=== PATIENT | female | born 1965 | race Caucasian/White ===

== ENCOUNTER 2023-04-03 05:55 | Emergency (ER) | payer OTHER ==
--- NOTE | 2023-04-03 06:32 | ED Physician Documentation ---
PD HPI FOCAL NEURO - Stated complaint Stated Complaint: HAND TINGLING - Chief complaint Chief Complaint: Ext Problem - History obtained from History obtained from: Patient - History of Present Illness Timing - onset: Enter time (514), Today Timing - duration: Hours Timing - details: Abrupt onset, Still present, Other (imnproved) Time of symptom onset unknown: Time of onset unknown Severity of deficit: Mild Weakness: No: Face, Arm, Hand, Leg, Foot, Right, Left Numbness: Hand, Left. No: Face, Arm, Leg, Foot, Right Associated symptoms: No: Headache, Nausea / vomiting, Seizure, Syncope, Fall, Head injury, Chest pain, Neck pain, Back pain Contributing factors: negative: Anticoagulated Baseline status: positive: A&OX3, ambulatory, indep Similar symptoms before: Has not had sx before Recently seen: Not recently seen - Additional information Additional information: Previously well Sandra Michael with a history of type 2 diabetes presents to the emergency department this morning with pain to her left arm that she awoke with at 515. She had pain from her shoulder down to her hand and this has now resolved to numbness in her hand. Review of Systems Constitutional: denies: Fever Throat: denies: Sore throat Cardiac: denies: Chest pain / pressure Respiratory: denies: Cough GI: denies: Nausea, Vomiting, Constipation, Diarrhea : denies: Dysuria, Frequency Skin: denies: Rash Musculoskeletal: denies: Neck pain, Back pain, Extremity pain Neurologic: reports: Numbness (to the left hand). denies: Generalized weakness, Focal weakness PD PAST MEDICAL HISTORY - Past Medical History Past Medical History: Yes Endocrine/Autoimmune: Type 2 diabetes Psych: Depression - Present Medications Home Medications: Ambulatory Orders Medication Instructions Recorded Confirmed Citalopram Hydrobromide 40 mg PO DAILY 04/03/23 04/03/23 [Citalopram HBr] Empagliflozin [Jardiance] 25 mg PO DAILY 04/03/23 04/03/23 Semaglutide [Ozempic] 2 mg SQ 04/03/23 04/03/23 buPROPion [Wellbutrin Xl] 150 mg PO DAILY 04/03/23 04/03/23 metFORMIN [Glucophage] 500 mg PO BID 04/03/23 04/03/23 - Allergies Allergies/Adverse Reactions: Allergies Allergy/AdvReac Type Severity Reaction Status Date / Time papaya Allergy Edema Verified 04/03/23 06:15 - Social History Does the pt smoke?: No Smoking Status: Never smoker PD ED PE NORMAL - Vitals Vital signs reviewed: Yes (normal ) - General General: Alert and oriented X 3, No acute distress, Well developed/nourished - HEENT HEENT: Atraumatic, PERRL, EOMI - Neck Neck: Supple, no meningeal sign, No bony TTP, No adenopathy - Cardiac Cardiac: RRR, No murmur - Respiratory Respiratory: No respiratory distress, Clear bilaterally - Abdomen Abdomen: Normal bowel sounds, Soft, Non tender, Non distended, No organomegaly - Back Back: No CVA TTP, No spinal TTP - Derm Derm: Normal color, Warm and dry, No rash - Extremities Extremities: No deformity, No edema - Neuro Neuro: Alert and oriented X 3, domestic technician 2-12 intact, No motor deficit, Normal speech, Other (There is subjective numbness to the left hand palmar and dorsal. ) Eye Opening: Spontaneous Motor: Obeys Commands Verbal: Oriented GCS Score: 15 - Psych Psych: Normal mood, Normal affect NIHSS - Time Time: 06:20 - Level of Consciousness Level of consciousness: (0) Alert, Keenly responsive LOC Questions: (0) Answers both Q's correct LOC Commands: (0) Performs both correctly - Gaze Best Gaze: (0) Normal - Visual Visual: (0) No loss - Facial Palsy Facial Palsy: (0) Normal, symmetrical movement - Motor Arms (both separate) Motor Arm (right): (0) No drift Motor Arm (left): (0) No drift - Motor Legs (both separate) Motor Leg (right): (0) No drift Motor Leg (left): (0) No drift - Limb Ataxia Limb Ataxia: (0) Absent - Sensory Sensory: (1) [id number] loss - Best Language Best Language: (0) No aphasia - Dysarthria Dysarthria: (0) Normal - Extinction and Inattention (formally neg Extinction and inattention: (0) No abnormality - Total Score/Results Total Score/Result: 1 Results - Vitals Vitals: Vital Signs - 24 hr 04/03/23 04/03/23 04/03/23 06:00 06:25 06:30 Temperature 36.1 C L Heart Rate 68 66 71 Respiratory 17 17 19 Rate Blood Pressure 94/72 112/62 O2 Saturation 100 97 97 04/03/23 07:44 Temperature 36.6 C Heart Rate 66 Respiratory 16 Rate Blood Pressure 105/57 L O2 Saturation 98 Oxygen O2 Source Room air - EKG (time done) 0645 EKG releavant findings:: EKG personally interpreted by author of this note. Relevant findings are: Rate: Rate (enter#) (65) Rhythm: NSR QRS: Low voltage Compare to prior EKG: Old EKG unavailable Computer interpretation: Agree with computer - Labs Labs: Laboratory Tests 04/03/23 04/03/23 07:20 07:20 WBC 4.5 L RBC 4.60 Hgb 12.9 Hct 40.5 MCV 88.0 MCH 28.0 MCHC 31.9 L RDW 13.7 Plt Count 258 MPV 8.9 Neut # (Auto) 2.4 Lymph # (Auto) 1.5 Dent # (Auto) 0.5 Eos # (Auto) 0.1 Baso # (Auto) 0.1 Absolute Nucleated RBC 0.00 Nucleated RBC % 0.0 Sodium 137 Potassium 4.2 Chloride 102 Carbon Dioxide 27 Anion Gap 8.0 BUN 18 Creatinine 0.6 Estimated GFR (MDRD) 103 Glucose 107 H Calcium 8.9 Total Bilirubin 0.5 AST 11 ALT 10 Alkaline Phosphatase 30 L Troponin I High Sens 2.3 Total Protein 6.5 Albumin 3.7 Globulin 2.8 Albumin/Globulin Ratio 1.3 Lipase 55 PD Medical Decision Making - ED course Complexity details: reviewed results, re-evaluated patient, considered differential, d/w patient Reviewed Lab Results: We reviewed a complete blood count showing a white blood cell count low at 4.5 normal hemoglobin hematocrit and platelets and normal industries chemistries were unremarkable with normal electrolytes normal kidney and liver function and a normal high-sensitivity troponin. I interpreted these studies to indicate the patient did not have a coronary syndrome and her symptoms improving in the department are consistent with her sleeping on her arm wrong. ED course: 57-year-old aSndra Michael presented to the emergency department with pain and numbness to her left arm and the numbness persisted to her hand. As the time went on this morning her numbness has mostly resolved. We did do electrocardiogram and troponin without evidence for coronary syndrome. We did do CT scan of the head without obvious findings. This does not appear to be a stroke or TIA. This is consistent with nerve palsy. She is treated conservatively and discharged to home. Departure - Departure Disposition: 01 Home, Self Care Clinical Impression: Paresthesia of left arm Condition: Stable Instructions: ED Paraesthesias Follow-Up: Aye Holland MD [Primary Care Provider] - Comments: Sandra, today it looks like the numbness you have in your arm was from sleeping on this wrong and the expectation is complete resolution of your symptoms. We did not have any evidence of stroke or heart attack associated with this event. Forms: PCP List
[2023-04-03 07:35] LABS: BASOPHILS # (AUTO) 0.1 10^3/uL (0.0-0.1); BASOPHILS % (AUTO) 1.5 %; EOSINOPHILS # (AUTO) 0.1 10^3/uL (0.0-0.7); EOSINOPHILS % (AUTO) 2.6 %; HCT - HEMATOCRIT 40.5 % (37.0-47.0); HGB - HEMOGLOBIN 12.9 g/dL (12.0-16.0); LYMPHOCYTES # (AUTO) 1.5 10^3/uL (1.5-3.5); LYMPHOCYTES % (AUTO) 32.4 %; MEAN CORPUSCULAR HGB CONC 31.9 g/dL (32.0-36.0); MEAN PLATELET VOLUME 8.9 fL (7.9-10.8); MONOCYTES # (AUTO) 0.5 10^3/uL (0.0-1.0); MONOCYTES % (AUTO) 10.8 %; NEUTROPHILS # (AUTO) 2.4 10^3/uL (1.5-6.6); NEUTROPHILS % (AUTO) 52.3 %; PLT - PLATELET COUNT 258 10^3/uL (130-450); RED CELL DISTRIBUTION WIDTH 13.7 % (12.0-15.0); WHITE BLOOD COUNT 4.5 x10^3/uL (4.8-10.8)
[2023-04-03 07:39] LABS: ALBUMIN 3.7 g/dL (3.2-5.5); ALBUMIN/GLOBULIN RATIO 1.3 (1.0-2.2); BILIRUBIN,TOTAL 0.5 mg/dL (0.2-1.0); CALCIUM 8.9 mg/dL (8.5-10.3); CREATININE 0.6 mg/dL (0.6-1.3); POTASSIUM 4.2 mmol/L (3.5-4.5); TOTAL PROTEIN 6.5 g/dL (6.4-8.9)
[2023-04-03 07:54] VITALS: BP 105/57; O2SAT 98
--- NOTE | 2023-04-03 08:02 | CT Report ---
PROCEDURE: Head WO INDICATIONS: left arm numbness TECHNIQUE: Noncontrast 4.5 mm thick angled axial sections acquired from the foramen magnum to the vertex. For r adiation dose reduction, the following was used: automated exposure control, adjustment of mA and/or kV according to patient size. COMPARISON: None FINDINGS: Image quality: Diagnostic CSF spaces: Basal cisterns are patent. Lateral ventricles are symmetric. Volume: Mild volume loss Brain: No intracranial hemorrhage. Ward-white differentiation is grossly maintained. Small falx and extra-axial convexity calcifications, possibly small calcified meningiomas. Craniofacial structures: No displaced fracture. Sinuses are clear. Orbits are intact. IMPRESSION: No acute intracranial abnormality. If there is high concern for infarct, consider MRI. Reviewed by: Felix Cary MD on 04/03/2023 8:01 AM [facility] Approved by: Felix Cary MD on 04/03/2023 8:01 AM [facility] Station ID: [id number]
[2023-04-03 08:04] LABS: TROPONIN I HIGH SENSITIVITY 2.3 ng/L (2.3-14.8)
== END 2023-04-03 08:55 | disposition home or self-care (01) ==
LOC: ED 05:55
DX: R20.2 Paresthesia of skin (principal); M25.512 Pain in left shoulder
CPT/HCPCS: 36415; 80053; 83690; 84484; 85025; 93005; 99283; 99284